=== PATIENT | male | born 1970 | race Hispanic/Latino ===

== ENCOUNTER 2023-12-04 13:55 | Emergency (ER) | payer SELFPAY ==
[2023-12-04 14:01] VITALS: BP 152/97
--- NOTE | 2023-12-04 18:35 | ED.SKININJ ---
HPI-Injury
General
Chief Complaint: Skin Surface Trauma
Source: patient
Exam Limitations: none
Time Seen by Provider: 12/04/23 18:03
History of Present Illness-Injury
Is this injury a work related problem?: Yes
Is pt an associate of [facility]/[place]?: No
Initial Injury comments:
This is a 53 year old male that comes in with c/o right third finger. States that he forgot to turn the blades off on the mower and he cut his third finger. States that he also has pain in the fourth finger. Denies any fever, chills, chest pain,
SOB, abd pain, nausea, vomiting, diarrhea, headache, dizziness. Unknown tetanus status.
Past History
Past History
ED Past Medical History: None; Negative Asthma, HTN, Hypercholesterolemia or NIDDM
ED Past Surgical History: None
Social History
Tobacco: Non-smoker
Alcohol: None
Personal:
Living: with family
Employment: Employed
Review of Systems
Review of Systems
All Other Systems: ROS reviewed and negative except as documented in HPI and ROS
Constitutional: Reports no symptoms; Denies fever or chills
EENT: Reports no symptoms
Respiratory: Reports no symptoms; Denies cough or trouble breathing
Cardiac: Reports no symptoms; Denies chest pain
ABD/GI: Reports no symptoms; Denies abdominal pain, nausea, vomiting or diarrhea
: Reports no symptoms; Denies dysuria, frequency or urgency
Musculoskeletal: Reports no symptoms
Skin: Reports other (Avulsion of the third finger. )
Neurological: Reports no symptoms; Denies dizzy or headache
Psychiatric: Reports no symptoms
Skin Exam
Avulsion
Right Third Finger:
Type of avulsion injury: avulsion
Any active bleeding?: low grade venous oozing
Distal skin color and temperature: normal-warm & good color
Normal distal neurovascular exam: Yes
Phy Exam
General Physical Exam
General Presentation: well appearing and no apparent distress
General age: appears stated age
General Skin: warm and dry
General Habitus: normal
General Mental: alert
General Hydration: appears well hydrated
Eye Exam
Eye Exam: EOMI
Musculoskeletal Exam
Musculoskeletal Exam: other (patient able to flex fingers. Avulsion of the tip of the third finger. distal nail is also involved. Finger cleaned with saline)
Skin Exam
Skin Exam: normal color, warm/dry, no petechia and other (avulsion of the right third finger tip)
Psychiatric Exam
Psychiatric Exam: normal mood/affect
Course
Orders/Labs/Results
Orders:
Orders
12/04/23 13:58
Finger(s)/Thumb 2 View Rt [CR Finger(s)/thumb Min 2 Vw Rt] Urgent
Comment:
Reason For Exam: pain injury
Indicate Which Finger:: Middle Finger
12/04/23 18:31
Finger(s)/Thumb 2 View Rt [CR Finger(s)/thumb Min 2 Vw Rt] Urgent
Comment:
Reason For Exam: Pain
Indicate Which Finger:: Ring Finger
12/04/23 18:34
Cephalexin Monohydrate [Keflex] 500 mg PO NOW STA
Tetanus/Diphth/Acelpertussis [Adacel] 0.5 ml IM .ONCE ONE
Vital Signs
Initial and Last Documented VS:
Initial Vital Signs
Temp Pulse Resp BP Pulse Ox
98.4 F 80 18 152/97 94
12/04/23 14:01 12/04/23 14:01 12/04/23 14:01 12/04/23 14:01 12/04/23 14:01
Last Documented Vital Signs
Temp Pulse Resp BP Pulse Ox
98.4 F 80 18 152/97 94
12/04/23 14:01 12/04/23 14:01 12/04/23 14:01 12/04/23 14:01 12/04/23 14:01
MDM/Problems Addressed
Differential Diagnosis Includes:
Third finger fracture with avulsion
MDM/Problems Addressed:
This is a 53 year old male that comes in with c/o cut to the right third finger. States that he forgot to turn off the mower blades. Patient is also c/o pain in the fourth finger.
Will get X-ray. Explained that this is an avusion and there is nothing to be sutured. Explained that there is also a fracture of the finger tip. Patient will be given Tetanus and started on antibiotics. Message sent to Dr. Murillo and he will
have him follow up with Dr. Collins. Patient to return with any concerns.
Chronic conditions affecting care:
NA
Acute Exacerbation and/or Progression of Chronic Illness:
NA
*Radiology
Radiology exam reviewed: radiology read reviewed (third finger-prominent soft tissue defects along the distal aspect of the middle finger with underlying nondisplaced tuft fractures. Fourth finger- there is subtle nondisplaced fracture of the tuft
of the distal phalanx of the ring finger which given the mechanism of injury, suggests compound ) and other (Fourth finger X-ray cont- compound fracture. )
*Pulse Oximetry
Patient hypoxic: no
*EKG
Interpreted by ED Provider?: NA
Rate: EKG- N/A
*Trolley Cleaner Interpretation
Rate: Trolley Cleaner- N/A
*Critical Care Note
Total Time (30-74mins, 75-104mins- exclusive of procedures): Not Applicable
ED Attending Note
-
Portions of this chart may have been created with voice recognition software.� Occasional wrong word or��sound alike� substitutions may have occurred due to the inherent limitations of voice recognition software.
Discharge Plan
Departure
Patient Disposition: Home (Routine Discharge)
Date of Disposition: 12/04/23
Time of Disposition: 19:57
Patient with high blood pressure during this ER visit?: Yes
Condition: Good
Covid-19: Not Applicable
Discharge Problem:
Avulsion of finger tip, Finger fracture, right
Instructions: Avulsion Fracture (DC), BLOOD PRESSURE
Prescriptions:
New
cephalexin 500 mg capsule
500 mg PO Q6H 10 Days Qty: 40 0RF
Referrals:
Doron Collins MD [Active] - Tomorrow
NONE,* [Family Provider] -
Activity Restrictions/Additional Instructions:
As discussed, you have an avulsion of the tip of the third finger. There is also a fracture of this finger and a fracture of the fourth finger. You have been place in splints and the third finger was dressed. Please do not remove this until you are
seen by the curriculum development specialist. PLEASE CALL THERE OFFICE TOMORROW AND THEY WILL GET YOU INTO SEE THE SPECIALIST. PLEASE KEEP YOUR HAND ELEVATED AT THE LEVEL OF OUR HEART. You may use Tylenol 1000mg every 6 hours and Ibuprofen 600mg every 6 hours
with food. IF YOU HAVE FEVER, REDNESS OR YOU HAVE ANY OTHER CONCERNS PLEASE RETURN TO THE EMERGENCY ROOM
Interventions
Interventions:
*Risk Screen - Suicide Last Done: 12/04/23 14:03
*General Assessment Last Done: 12/04/23 14:03
*Neglect/Abuse Screening Last Done: 12/04/23 14:03
ED-Skin Assessment Last Done: 12/04/23 19:05
Discharge Date and Time
Print Language: [email or web address]
[2023-12-04] MEDS: KEFLEX 500 MG PO (19:27)
[2023-12-04] MEDS: ADACEL 0.5 ML IM (19:27)
[2023-12-04] MEDS: MOTRIN 600 MG PO (20:02)
[2023-12-04] MEDS: TYLENOL 1000 MG PO (20:02)
[2023-12-04 20:09] VITALS: BP 143/89
== END 2023-12-04 20:12 | disposition home or self-care (01) ==
LOC: EMR 13:55
PROVIDERS: EMERGENCY PHYSICIAN Emergency Medicine
DX: S62.664A Nondisplaced fracture of distal phalanx of right ring finger, initial encounter for closed fracture (principal); S62.662B Nondisplaced fracture of distal phalanx of right middle finger, initial encounter for open fracture; W28.XXXA Contact with powered lawn mower, initial encounter; R03.0 Elevated blood-pressure reading, without diagnosis of hypertension; Z23 Encounter for immunization
CPT/HCPCS: 99283; 90471; 73140; 90715